=== PATIENT | female | born 1950 | race Caucasian/White ===

== ENCOUNTER 2024-03-06 10:17 | Outpatient (CLI) | payer MEDICARE, OTHER | END 2024-03-06 10:18 | disposition home or self-care (01) | LOC: CSHRAD 10:17 | PROVIDERS: ATTEND Otolaryngology Plastic Surgery within the Head & Neck | DX: H90.8 Mixed conductive and sensorineural hearing loss, unspecified (principal); T16.2XXA Foreign body in left ear, initial encounter | CPT/HCPCS: 70480 ==